=== PATIENT | female | born 1965 | race Caucasian/White ===

== ENCOUNTER 2018-05-14 15:14 | Outpatient (CLI) | payer MEDICARE, SELFPAY ==
[2018-05-14 15:47] LABS: Abs Immature Grans 0.01 k/cumm (0.0-0.09); Absolute Basophil Count 0.04 k/cumm (0.0-0.2); Absolute Eosinophil Count 0.24 k/cumm (0.0-0.7); Absolute Lymphocyte Count 2.23 k/cumm (1.2-3.4); Absolute Monocyte Count 0.47 k/cumm (0.11-0.7); Absolute Neutrophil Count 3.86 k/cumm (1.2-6.7); Basophils % 0.6; Eosinophils % 3.5; HGB 13.6 g/dL (12.0-15.5); Immature Grans % 0.1; Lymphocytes % 32.6; Mean Corpuscular Hemoglobin 29.4 pg (27.0-33.0); Mean Corpuscular Volume 86.6 fL (80-95); Mean Platelet Volume 11.5 fL (8.0-11.0); Monocytes % 6.9; Neutrophils % 56.3; Platelet Count 282 x1000/uL (130-400); RBC 4.62 m/cumm (4.00-5.20); RBC Distribution Width 13.6 % (11.7-14.6); White Blood Cell Count 6.85 k/cumm (4.4-10.8)
[2018-05-14 16:11] LABS: ALT 11 U/L (12-78); AST 13 U/L (15-37); Albumin 3.8 g/dL (3.4-5.0); Alkaline Phosphatase 63 U/L (46-116); Anion Gap 9.1 mmol/L (3-11); BUN 15 mg/dL (7-18); CO2 27.9 mmol/L (21.0-32.0); Chloride 105 mmol/L (98-107); Estimated GFR 42.85 (mL/min/1.73m2); Glucose 97 mg/dL (70-100); Potassium 4.1 mmol/L (3.5-5.1); Sodium 142 mmol/L (136-145); Total Protein 7.3 g/dL (6.4-8.2)
== END 2018-05-14 15:34 ==
PROVIDERS: PCP Family Medicine; Visit Provider Internal Medicine Medical Oncology
DX: C50.412 Malignant neoplasm of upper-outer quadrant of left female breast (principal); Z17.0 Estrogen receptor positive status [ER+]
CPT/HCPCS: 36415; 80053; 85025

== ENCOUNTER 2022-07-25 03:39 | Outpatient (CLI) | payer MEDICARE, SELFPAY ==
[2022-07-25 12:07] LABS: Abs Immature Grans 0.01 10^3/uL (0.0-0.06); Absolute Basophil Count 0.07 10^3/uL (0.0-0.2); Absolute Eosinophil Count 0.36 10^3/uL (0.0-0.7); Absolute Lymphocyte Count 1.71 10^3/uL (1.2-3.4); Absolute Monocyte Count 0.48 10^3/uL (0.1-0.8); Absolute Neutrophil Count 4.31 10^3/uL (1.2-6.7); Eosinophils % 5.2; HCT 40.1 % (36.0-46.0); Immature Grans % 0.1; Lymphocytes % 24.6; MCH 29.2 pg (27.0-33.0); MCHC 32.4 % (32.0-36.0); MCV 90 fL (80-95); MPV 11.5 fL (8.0-11.0); Monocytes % 6.9; Neutrophils % 62.2; Platelet Count 293 10^3/uL (130-400); RBC 4.45 10^6/uL (3.93-5.22); RDW 13.5 % (11.7-14.6); RDW-SD 44.6 fL; WBC 6.94 10^3/uL (4.4-10.8)
[2022-07-25 12:22] LABS: ALT 11 U/L (14-59); AST 15 U/L (15-37); Alkaline Phosphatase 58 U/L (46-116); Anion Gap 5.8 mmol/L (3-11); BUN 24 mg/dL (7-18); Bilirubin, Total 0.8 mg/dL (0.2-1.0); CO2 31.2 mmol/L (21.0-32.0); CREATININE 1.4 mg/dL (0.55-1.02); Calcium 9.5 mg/dL (8.5-10.1); Chloride 106 mmol/L (98-107); Estimated GFR 43.61 (mL/min/1.73m2); Glucose 100 mg/dL (74-106); Potassium 4.6 mmol/L (3.5-5.1); Sodium 143 mmol/L (136-145); Total Protein 7.1 g/dL (6.4-8.2)
== END 2022-07-25 03:40 | disposition home or self-care (01) ==
LOC: LBO 03:40
PROVIDERS: PCP Family Medicine; Visit Provider Internal Medicine
DX: C50.412 Malignant neoplasm of upper-outer quadrant of left female breast (principal)
CPT/HCPCS: 36415; 80053; 85025

== ENCOUNTER 2023-08-15 14:50 | Outpatient (CLI) | payer MEDICARE, SELFPAY ==
[2023-08-15 11:36] LABS: Abs Immature Grans 0.03 10^3/uL (0.0-0.06); Absolute Basophil Count 0.08 10^3/uL (0.0-0.2); Absolute Monocyte Count 0.56 10^3/uL (0.1-0.8); Absolute Neutrophil Count 4.01 10^3/uL (1.2-6.7); Basophils % 1.1; Eosinophils % 6.6; HCT 37.4 % (36.0-46.0); HGB 12.4 g/dL (11.2-15.7); Immature Grans % 0.4; Lymphocytes % 31.7; MCH 29.5 pg (27.0-33.0); MCHC 33.2 % (32.0-36.0); MCV 89 fL (80-95); MPV 11.1 fL (8.0-11.0); Monocytes % 7.4; Neutrophils % 52.8; Platelet Count 371 10^3/uL (130-400); RDW 14.1 % (11.7-14.6); RDW-SD 45.5 fL; WBC 7.58 10^3/uL (4.4-10.8)
[2023-08-15 11:49] LABS: ALT 13 U/L (14-59); AST 10 U/L (15-37); Albumin 3.6 g/dL (3.4-5.0); Alkaline Phosphatase 52 U/L (46-116); Anion Gap 7.3 mmol/L (3-11); BUN 19 mg/dL (7-18); Bilirubin, Total 0.6 mg/dL (0.2-1.0); CO2 28.7 mmol/L (21.0-32.0); CREATININE 1.3 mg/dL (0.55-1.02); Calcium 9.4 mg/dL (8.5-10.1); Chloride 105 mmol/L (98-107); Estimated GFR 47.37 (mL/min/1.73m2); Glucose 101 mg/dL (74-106); Potassium 4.4 mmol/L (3.5-5.1); Sodium 141 mmol/L (136-145); Total Protein 7.7 g/dL (6.4-8.2)
== END 2023-08-15 14:51 | disposition home or self-care (01) ==
LOC: LBO 14:50
PROVIDERS: PCP Family Medicine; Visit Provider Nurse Practitioner
DX: C50.412 Malignant neoplasm of upper-outer quadrant of left female breast (principal); Z17.0 Estrogen receptor positive status [ER+]
CPT/HCPCS: 36415; 80053; 85025

== ENCOUNTER 2024-01-22 02:33 | Outpatient (RCR) | payer MEDICARE, SELFPAY ==
[2024-01-08] MEDS: Normal Saline Flush 10 ML SYR IVP (09:15)
[2024-01-08 10:30] LABS: Abs Immature Grans 0.02 10^3/uL (0.0-0.06); Absolute Basophil Count 0.06 10^3/uL (0.0-0.2); Absolute Eosinophil Count 0.45 10^3/uL (0.0-0.7); Absolute Lymphocyte Count 1.53 10^3/uL (1.2-3.4); Absolute Monocyte Count 0.35 10^3/uL (0.1-0.8); Absolute Neutrophil Count 3.12 10^3/uL (1.2-6.7); Basophils % 1.1 %; Eosinophils % 8.1 %; HCT 37.2 % (36.0-46.0); HGB 12.4 g/dL (11.2-15.7); Immature Grans % 0.4 %; Lymphocytes % 27.7 %; MCH 29.2 pg (27.0-33.0); MCHC 33.3 % (32.0-36.0); MCV 88 fL (80-95); MPV 12.2 fL (8.0-11.0); Monocytes % 6.3 %; Neutrophils % 56.4 %; Platelet Count 282 10^3/uL (130-400); RBC 4.24 10^6/uL (3.93-5.22); RDW 14.6 % (11.7-14.6); RDW-SD 46.5 fL; WBC 5.53 10^3/uL (4.4-10.8)
[2024-01-08 10:58] LABS: ALT 16 U/L (14-59); AST 14 U/L (15-37); Albumin 3.9 g/dL (3.4-5.0); Alkaline Phosphatase 51 U/L (46-116); Anion Gap 7.7 mmol/L (3-11); BUN 20 mg/dL (7-18); Bilirubin, Total 0.8 mg/dL (0.2-1.0); CO2 29.3 mmol/L (21.0-32.0); CREATININE 1.4 mg/dL (0.55-1.02); Calcium 9.5 mg/dL (8.5-10.1); Chloride 106 mmol/L (98-107); Estimated GFR 43.34 (mL/min/1.73m2); Glucose 99 mg/dL (74-106); Potassium 4.2 mmol/L (3.5-5.1); Sodium 143 mmol/L (136-145); TSH 4.83 uIU/Ml (0.36-3.74); Total Protein 7.3 g/dL (6.4-8.2)
[2024-01-15] MEDS: Normal Saline Flush 10 ML SYR IVP (10:42)
[2024-01-15 11:01] LABS: Abs Immature Grans 0.05 10^3/uL (0.0-0.06); Absolute Basophil Count 0.05 10^3/uL (0.0-0.2); Absolute Eosinophil Count 0.36 10^3/uL (0.0-0.7); Absolute Lymphocyte Count 1.61 10^3/uL (1.2-3.4); Absolute Monocyte Count 0.22 10^3/uL (0.1-0.8); Absolute Neutrophil Count 2.74 10^3/uL (1.2-6.7); Eosinophils % 7.2 %; HCT 36.8 % (36.0-46.0); HGB 12.3 g/dL (11.2-15.7); MCH 29.6 pg (27.0-33.0); MCHC 33.4 % (32.0-36.0); MCV 89 fL (80-95); MPV 11.4 fL (8.0-11.0); Monocytes % 4.4 %; Neutrophils % 54.4 %; Platelet Count 335 10^3/uL (130-400); RBC 4.15 10^6/uL (3.93-5.22); RDW-SD 45.2 fL; WBC 5.03 10^3/uL (4.4-10.8)
[2024-01-15 11:32] LABS: ALT 17 U/L (14-59); AST 14 U/L (15-37); Alkaline Phosphatase 51 U/L (46-116); Anion Gap 6.9 mmol/L (3-11); BUN 20 mg/dL (7-18); CO2 30.1 mmol/L (21.0-32.0); CREATININE 1.4 mg/dL (0.55-1.02); Calcium 9.3 mg/dL (8.5-10.1); Chloride 105 mmol/L (98-107); Estimated GFR 43.34 (mL/min/1.73m2); FREE T4 < 0.10 ng/dL (0.76-1.46); Glucose 92 mg/dL (74-106); Potassium 4.2 mmol/L (3.5-5.1); Sodium 142 mmol/L (136-145); TSH 8.46 uIU/Ml (0.36-3.74); Total Protein 7.2 g/dL (6.4-8.2)
[2024-01-15 12:57] LABS: Albumin < 0.6 g/dL (3.4-5.0)
[2024-01-22] MEDS: Normal Saline Flush 10 ML SYR IVP (10:39)
[2024-01-22 11:20] LABS: Abs Immature Grans 0.02 10^3/uL (0.0-0.06); Absolute Basophil Count 0.06 10^3/uL (0.0-0.2); Absolute Eosinophil Count 0.18 10^3/uL (0.0-0.7); Absolute Lymphocyte Count 1.23 10^3/uL (1.2-3.4); Absolute Monocyte Count 0.18 10^3/uL (0.1-0.8); Basophils % 1.7 %; HCT 36.7 % (36.0-46.0); Immature Grans % 0.6 %; Lymphocytes % 34.5 %; MCH 29.6 pg (27.0-33.0); MCHC 32.7 % (32.0-36.0); MCV 90 fL (80-95); Neutrophils % 53.2 %; Platelet Count 330 10^3/uL (130-400); RBC 4.06 10^6/uL (3.93-5.22); RDW 14.1 % (11.7-14.6); RDW-SD 45.3 fL; WBC 3.57 10^3/uL (4.4-10.8)
[2024-01-22 11:43] LABS: ALT 19 U/L (14-59); AST 18 U/L (15-37); Alkaline Phosphatase 51 U/L (46-116); Anion Gap 7.9 mmol/L (3-11); BUN 17 mg/dL (7-18); Bilirubin, Total 0.89 mg/dL (0.2-1.0); CO2 30.1 mmol/L (21.0-32.0); CREATININE 1.4 mg/dL (0.55-1.02); Calcium 9.6 mg/dL (8.5-10.1); Chloride 104 mmol/L (98-107); Estimated GFR 43.34 (mL/min/1.73m2); FREE T4 1.03 ng/dL (0.76-1.46); Glucose 100 mg/dL (74-106); Potassium 4.2 mmol/L (3.5-5.1); Sodium 142 mmol/L (136-145); TSH 10.29 uIU/Ml (0.36-3.74); Total Protein 7.1 g/dL (6.4-8.2)
== END 2024-01-27 23:59 | disposition home or self-care (01) ==
LOC: INF 02:33
PROVIDERS: PCP Family Medicine; Visit Provider Internal Medicine Hematology & Oncology
DX: C50.311 Malignant neoplasm of lower-inner quadrant of right female breast (principal); E03.9 Hypothyroidism, unspecified; Z45.2 Encounter for adjustment and management of vascular access device
CPT/HCPCS: 36591; 80053; 84439; 84443; 85025

== ENCOUNTER 2024-02-26 03:07 | Outpatient (RCR) | payer MEDICARE, SELFPAY ==
[2024-01-29] MEDS: Normal Saline Flush 10 ML SYR IVP (09:32)
[2024-01-29 09:40] LABS: Abs Immature Grans 0.05 10^3/uL (0.0-0.06); Absolute Basophil Count 0.08 10^3/uL (0.0-0.2); Absolute Eosinophil Count 0.09 10^3/uL (0.0-0.7); Absolute Lymphocyte Count 1.24 10^3/uL (1.2-3.4); Absolute Neutrophil Count 1.92 10^3/uL (1.2-6.7); Basophils % 2.2 %; Eosinophils % 2.5 %; HGB 11.1 g/dL (11.2-15.7); Immature Grans % 1.4 %; Lymphocytes % 34.6 %; MCH 29.8 pg (27.0-33.0); MCHC 32.6 % (32.0-36.0); MCV 91 fL (80-95); MPV 10.8 fL (8.0-11.0); Monocytes % 5.6 %; Neutrophils % 53.7 %; Platelet Count 364 10^3/uL (130-400); RBC 3.72 10^6/uL (3.93-5.22); RDW 14.9 % (11.7-14.6); RDW-SD 46.5 fL; WBC 3.58 10^3/uL (4.4-10.8)
[2024-01-29 10:11] LABS: ALT 15 U/L (14-59); AST 14 U/L (15-37); Albumin 3.7 g/dL (3.4-5.0); Alkaline Phosphatase 50 U/L (46-116); Anion Gap 8.4 mmol/L (3-11); BUN 17 mg/dL (7-18); Bilirubin, Total 0.55 mg/dL (0.2-1.0); CO2 28.6 mmol/L (21.0-32.0); CREATININE 1.4 mg/dL (0.55-1.02); Calcium 9.4 mg/dL (8.5-10.1); Chloride 104 mmol/L (98-107); Estimated GFR 43.34 (mL/min/1.73m2); FREE T4 0.91 ng/dL (0.76-1.46); Glucose 101 mg/dL (74-106); Potassium 4.1 mmol/L (3.5-5.1); Sodium 141 mmol/L (136-145); TSH 11.16 uIU/Ml (0.36-3.74)
[2024-02-05] MEDS: Normal Saline Flush 10 ML SYR IVP (10:48)
[2024-02-05 10:57] LABS: Abs Immature Grans 0.03 10^3/uL (0.0-0.06); Absolute Basophil Count 0.04 10^3/uL (0.0-0.2); Absolute Eosinophil Count 0.12 10^3/uL (0.0-0.7); Absolute Lymphocyte Count 1.23 10^3/uL (1.2-3.4); Absolute Monocyte Count 0.24 10^3/uL (0.1-0.8); Absolute Neutrophil Count 2.14 10^3/uL (1.2-6.7); Basophils % 1.1 %; Eosinophils % 3.2 %; HCT 33.8 % (36.0-46.0); HGB 11.1 g/dL (11.2-15.7); Immature Grans % 0.8 %; Lymphocytes % 32.4 %; MCH 29.8 pg (27.0-33.0); MCHC 32.8 % (32.0-36.0); MCV 91 fL (80-95); MPV 10.3 fL (8.0-11.0); Monocytes % 6.3 %; Neutrophils % 56.2 %; Platelet Count 294 10^3/uL (130-400); RBC 3.72 10^6/uL (3.93-5.22); RDW 15.2 % (11.7-14.6)
[2024-02-05 11:23] LABS: ALT 17 U/L (14-59); AST 15 U/L (15-37); Albumin 3.7 g/dL (3.4-5.0); Alkaline Phosphatase 49 U/L (46-116); Anion Gap 7.6 mmol/L (3-11); BUN 13 mg/dL (7-18); Bilirubin, Total 0.98 mg/dL (0.2-1.0); CO2 27.4 mmol/L (21.0-32.0); CREATININE 1.3 mg/dL (0.55-1.02); Calcium 8.9 mg/dL (8.5-10.1); Chloride 104 mmol/L (98-107); Estimated GFR 47.37 (mL/min/1.73m2); Glucose 85 mg/dL (74-106); Sodium 139 mmol/L (136-145); TSH 11.08 uIU/Ml (0.36-3.74); Total Protein 6.9 g/dL (6.4-8.2)
[2024-02-12 10:28] LABS: Abs Immature Grans 0.03 10^3/uL (0.0-0.06); Absolute Basophil Count 0.06 10^3/uL (0.0-0.2); Absolute Eosinophil Count 0.11 10^3/uL (0.0-0.7); Absolute Monocyte Count 0.22 10^3/uL (0.1-0.8); Absolute Neutrophil Count 1.78 10^3/uL (1.2-6.7); Basophils % 1.8 %; Eosinophils % 3.3 %; HCT 32.6 % (36.0-46.0); Immature Grans % 0.9 %; Lymphocytes % 33.3 %; MCH 30.6 pg (27.0-33.0); MCHC 33.7 % (32.0-36.0); MCV 91 fL (80-95); MPV 10.2 fL (8.0-11.0); Monocytes % 6.7 %; Platelet Count 249 10^3/uL (130-400); RBC 3.59 10^6/uL (3.93-5.22); RDW 15.6 % (11.7-14.6); RDW-SD 50.4 fL
[2024-02-12] MEDS: Normal Saline Flush 10 ML SYR IVP (10:35)
[2024-02-12 10:52] LABS: ALT 18 U/L (14-59); AST 14 U/L (15-37); Albumin 3.8 g/dL (3.4-5.0); Alkaline Phosphatase 45 U/L (46-116); BUN 15 mg/dL (7-18); Bilirubin, Total 1.09 mg/dL (0.2-1.0); CREATININE 1.4 mg/dL (0.55-1.02); Calcium 9.3 mg/dL (8.5-10.1); Chloride 105 mmol/L (98-107); Estimated GFR 43.34 (mL/min/1.73m2); FREE T4 1.08 ng/dL (0.76-1.46); Glucose 106 mg/dL (74-106); Potassium 4.1 mmol/L (3.5-5.1); Sodium 141 mmol/L (136-145); TSH 10.38 uIU/Ml (0.36-3.74); Total Protein 7.1 g/dL (6.4-8.2)
[2024-02-26] MEDS: Normal Saline Flush 10 ML SYR IVP (08:30)
[2024-02-26 09:00] LABS: Abs Immature Grans 0.02 10^3/uL (0.0-0.06); Absolute Basophil Count 0.04 10^3/uL (0.0-0.2); Absolute Eosinophil Count 0.09 10^3/uL (0.0-0.7); Absolute Lymphocyte Count 1.45 10^3/uL (1.2-3.4); Absolute Monocyte Count 0.45 10^3/uL (0.1-0.8); Absolute Neutrophil Count 1.99 10^3/uL (1.2-6.7); Eosinophils % 2.2 %; HCT 33.1 % (36.0-46.0); HGB 11.2 g/dL (11.2-15.7); Immature Grans % 0.5 %; Lymphocytes % 35.9 %; MCH 30.9 pg (27.0-33.0); MCHC 33.8 % (32.0-36.0); MCV 91 fL (80-95); MPV 10.4 fL (8.0-11.0); Monocytes % 11.1 %; Neutrophils % 49.3 %; Platelet Count 251 10^3/uL (130-400); RBC 3.63 10^6/uL (3.93-5.22); RDW 17.2 % (11.7-14.6); RDW-SD 55.9 fL; WBC 4.04 10^3/uL (4.4-10.8)
[2024-02-26 09:28] LABS: ALT 16 U/L (14-59); AST 16 U/L (15-37); Albumin 3.6 g/dL (3.4-5.0); Alkaline Phosphatase 49 U/L (46-116); Anion Gap 11.2 mmol/L (3-11); BUN 13 mg/dL (7-18); Bilirubin, Total 1.08 mg/dL (0.2-1.0); CO2 27.8 mmol/L (21.0-32.0); CREATININE 1.8 mg/dL (0.55-1.02); Calcium 9.3 mg/dL (8.5-10.1); Chloride 107 mmol/L (98-107); Estimated GFR 32.06 (mL/min/1.73m2); FREE T4 1.16 ng/dL (0.76-1.46); Glucose 101 mg/dL (74-106); Potassium 3.9 mmol/L (3.5-5.1); Sodium 146 mmol/L (136-145); TSH 11.98 uIU/Ml (0.36-3.74); Total Protein 7.1 g/dL (6.4-8.2)
== END 2024-02-27 23:59 | disposition home or self-care (01) ==
LOC: INF 03:07
PROVIDERS: PCP Family Medicine; Visit Provider Internal Medicine Hematology & Oncology
DX: C50.311 Malignant neoplasm of lower-inner quadrant of right female breast (principal); Z17.1 Estrogen receptor negative status [ER-]; E03.9 Hypothyroidism, unspecified; Z45.2 Encounter for adjustment and management of vascular access device
CPT/HCPCS: 36591; 80053; 84439; 84443; 85025

== ENCOUNTER 2024-03-25 02:32 | Outpatient (RCR) | payer MEDICARE, SELFPAY ==
[2024-03-04 09:02] LABS: Abs Immature Grans 0.03 10^3/uL (0.0-0.06); Absolute Basophil Count 0.03 10^3/uL (0.0-0.2); Absolute Eosinophil Count 0.13 10^3/uL (0.0-0.7); Absolute Monocyte Count 0.22 10^3/uL (0.1-0.8); Basophils % 0.7 %; Eosinophils % 3.1 %; HCT 31.7 % (36.0-46.0); HGB 10.7 g/dL (11.2-15.7); Immature Grans % 0.7 %; Lymphocytes % 23.8 %; MCH 31.3 pg (27.0-33.0); MCHC 33.8 % (32.0-36.0); MCV 93 fL (80-95); MPV 10.3 fL (8.0-11.0); Monocytes % 5.2 %; Neutrophils % 66.5 %; Platelet Count 287 10^3/uL (130-400); RBC 3.42 10^6/uL (3.93-5.22); RDW 16.4 % (11.7-14.6); RDW-SD 55.2 fL; WBC 4.21 10^3/uL (4.4-10.8)
[2024-03-04 09:29] LABS: ALT 18 U/L (14-59); AST 12 U/L (15-37); Albumin 3.6 g/dL (3.4-5.0); Alkaline Phosphatase 51 U/L (46-116); Anion Gap 6.4 mmol/L (3-11); BUN 19 mg/dL (7-18); Bilirubin, Total 0.69 mg/dL (0.2-1.0); CO2 29.6 mmol/L (21.0-32.0); CREATININE 1.5 mg/dL (0.55-1.02); Calcium 9.5 mg/dL (8.5-10.1); Chloride 105 mmol/L (98-107); Estimated GFR 39.89 (mL/min/1.73m2); FREE T4 0.99 ng/dL (0.76-1.46); Glucose 103 mg/dL (74-106); Sodium 141 mmol/L (136-145); TSH 10.73 uIU/Ml (0.36-3.74); Total Protein 7.1 g/dL (6.4-8.2)
[2024-03-04] MEDS: Normal Saline Flush 10 ML SYR IVP (09:43)
[2024-03-11] MEDS: Normal Saline Flush 10 ML SYR IVP (07:46)
[2024-03-11 08:38] LABS: Abs Immature Grans 0.01 10^3/uL (0.0-0.06); Absolute Basophil Count 0.04 10^3/uL (0.0-0.2); Absolute Eosinophil Count 0.13 10^3/uL (0.0-0.7); Absolute Lymphocyte Count 1.17 10^3/uL (1.2-3.4); Absolute Monocyte Count 0.18 10^3/uL (0.1-0.8); Basophils % 1.5 %; Eosinophils % 4.8 %; HCT 31.2 % (36.0-46.0); HGB 10.8 g/dL (11.2-15.7); Immature Grans % 0.4 %; Lymphocytes % 42.9 %; MCH 31.8 pg (27.0-33.0); MCHC 34.6 % (32.0-36.0); MCV 92 fL (80-95); MPV 10.6 fL (8.0-11.0); Monocytes % 6.6 %; Neutrophils % 43.8 %; Platelet Count 310 10^3/uL (130-400); RDW 16.5 % (11.7-14.6); RDW-SD 54.3 fL; WBC 2.73 10^3/uL (4.4-10.8)
[2024-03-11 09:01] LABS: ALT 16 U/L (14-59); AST 17 U/L (15-37); Albumin 3.6 g/dL (3.4-5.0); Alkaline Phosphatase 46 U/L (46-116); Anion Gap 10.3 mmol/L (3-11); BUN 17 mg/dL (7-18); CO2 27.7 mmol/L (21.0-32.0); CREATININE 1.6 mg/dL (0.55-1.02); Calcium 9.5 mg/dL (8.5-10.1); Chloride 104 mmol/L (98-107); Estimated GFR 36.92 (mL/min/1.73m2); Glucose 96 mg/dL (74-106); Potassium 3.7 mmol/L (3.5-5.1); Sodium 142 mmol/L (136-145); Total Protein 7.1 g/dL (6.4-8.2)
[2024-03-18 09:02] LABS: Abs Immature Grans 0.02 10^3/uL (0.0-0.06); Absolute Basophil Count 0.03 10^3/uL (0.0-0.2); Absolute Eosinophil Count 0.07 10^3/uL (0.0-0.7); Absolute Lymphocyte Count 1.27 10^3/uL (1.2-3.4); Absolute Monocyte Count 0.19 10^3/uL (0.1-0.8); Absolute Neutrophil Count 0.88 10^3/uL (1.2-6.7); Basophils % 1.2 %; Eosinophils % 2.8 %; HCT 31.3 % (36.0-46.0); HGB 10.4 g/dL (11.2-15.7); Immature Grans % 0.8 %; Lymphocytes % 51.6 %; MCH 31.9 pg (27.0-33.0); MCHC 33.2 % (32.0-36.0); MCV 96 fL (80-95); MPV 10.4 fL (8.0-11.0); Monocytes % 7.7 %; Neutrophils % 35.9 %; Platelet Count 348 10^3/uL (130-400); RBC 3.26 10^6/uL (3.93-5.22); RDW 17.2 % (11.7-14.6); RDW-SD 58.7 fL; WBC 2.46 10^3/uL (4.4-10.8)
[2024-03-18] MEDS: Normal Saline Flush 10 ML SYR IVP (09:05)
[2024-03-18 09:21] LABS: Diff Comment Diff Reviewed; RBC Morphology Normal
[2024-03-18 09:28] LABS: ALT 10 U/L (14-59); AST 6 U/L (15-37); Albumin 3.5 g/dL (3.4-5.0); Alkaline Phosphatase 51 U/L (46-116); Anion Gap 7.9 mmol/L (3-11); BUN 12 mg/dL (7-18); Bilirubin, Total 0.56 mg/dL (0.2-1.0); CO2 26.1 mmol/L (21.0-32.0); CREATININE 1.5 mg/dL (0.55-1.02); Calcium 9.1 mg/dL (8.5-10.1); Chloride 105 mmol/L (98-107); Estimated GFR 39.89 (mL/min/1.73m2); Glucose 96 mg/dL (74-106); Potassium 4.2 mmol/L (3.5-5.1); Sodium 139 mmol/L (136-145); TSH 9.11 uIU/Ml (0.36-3.74); Total Protein 6.7 g/dL (6.4-8.2)
[2024-03-25] MEDS: Normal Saline Flush 10 ML SYR IVP (08:48)
[2024-03-25 09:21] LABS: Abs Immature Grans 0.05 10^3/uL (0.0-0.06); Absolute Basophil Count 0.05 10^3/uL (0.0-0.2); Absolute Eosinophil Count 0.07 10^3/uL (0.0-0.7); Absolute Lymphocyte Count 1.25 10^3/uL (1.2-3.4); Absolute Monocyte Count 0.53 10^3/uL (0.1-0.8); Basophils % 1.3 %; Eosinophils % 1.8 %; HCT 32.6 % (36.0-46.0); HGB 10.8 g/dL (11.2-15.7); Immature Grans % 1.3 %; Lymphocytes % 31.3 %; MCHC 33.1 % (32.0-36.0); MCV 96 fL (80-95); MPV 10.4 fL (8.0-11.0); Monocytes % 13.3 %; Platelet Count 308 10^3/uL (130-400); RBC 3.38 10^6/uL (3.93-5.22); RDW 17.5 % (11.7-14.6); RDW-SD 62.4 fL; WBC 3.99 10^3/uL (4.4-10.8)
[2024-03-25 09:22] LABS: Absolute Neutrophil Count 2.03 10^3/uL (1.2-6.7)
[2024-03-25 09:35] LABS: ALT 17 U/L (14-59); AST 14 U/L (15-37); Albumin 3.5 g/dL (3.4-5.0); Alkaline Phosphatase 58 U/L (46-116); Anion Gap 8.6 mmol/L (3-11); BUN 13 mg/dL (7-18); Bilirubin, Total 1.01 mg/dL (0.2-1.0); CO2 27.4 mmol/L (21.0-32.0); CREATININE 1.6 mg/dL (0.55-1.02); Calcium 9.2 mg/dL (8.5-10.1); Chloride 105 mmol/L (98-107); Estimated GFR 36.92 (mL/min/1.73m2); Glucose 93 mg/dL (74-106); Potassium 3.9 mmol/L (3.5-5.1); Sodium 141 mmol/L (136-145); Total Protein 7.1 g/dL (6.4-8.2)
== END 2024-03-29 23:59 | disposition home or self-care (01) ==
LOC: INF 02:32
PROVIDERS: PCP Family Medicine; Visit Provider Internal Medicine Hematology & Oncology
DX: C50.311 Malignant neoplasm of lower-inner quadrant of right female breast (principal); Z17.1 Estrogen receptor negative status [ER-]
CPT/HCPCS: 36591; 80053; 84439; 84443; 85025

== ENCOUNTER 2024-04-15 01:29 | Outpatient (RCR) | payer MEDICARE, SELFPAY ==
[2024-04-01 09:21] LABS: Abs Immature Grans 0.07 10^3/uL (0.0-0.06); Absolute Basophil Count 0.06 10^3/uL (0.0-0.2); Absolute Eosinophil Count 0.12 10^3/uL (0.0-0.7); Absolute Lymphocyte Count 1.23 10^3/uL (1.2-3.4); Absolute Monocyte Count 0.29 10^3/uL (0.1-0.8); Absolute Neutrophil Count 3.14 10^3/uL (1.2-6.7); Basophils % 1.2 %; Eosinophils % 2.4 %; HCT 31.4 % (36.0-46.0); HGB 10.5 g/dL (11.2-15.7); Immature Grans % 1.4 %; Lymphocytes % 25.1 %; MCH 32.1 pg (27.0-33.0); MCHC 33.4 % (32.0-36.0); MCV 96 fL (80-95); MPV 10.6 fL (8.0-11.0); Monocytes % 5.9 %; Platelet Count 311 10^3/uL (130-400); RBC 3.27 10^6/uL (3.93-5.22); RDW 15.9 % (11.7-14.6); RDW-SD 56.7 fL; WBC 4.91 10^3/uL (4.4-10.8)
[2024-04-01] MEDS: Normal Saline Flush 10 ML SYR IVP (09:42)
[2024-04-01 09:45] LABS: ALT 17 U/L (14-59); AST 17 U/L (15-37); Albumin 3.5 g/dL (3.4-5.0); Alkaline Phosphatase 50 U/L (46-116); Anion Gap 6.2 mmol/L (3-11); BUN 18 mg/dL (7-18); Bilirubin, Total 0.92 mg/dL (0.2-1.0); CO2 28.8 mmol/L (21.0-32.0); CREATININE 1.7 mg/dL (0.55-1.02); Calcium 9.9 mg/dL (8.5-10.1); Chloride 106 mmol/L (98-107); Estimated GFR 34.33 (mL/min/1.73m2); FREE T4 1.34 ng/dL (0.76-1.46); Glucose 106 mg/dL (74-106); Sodium 141 mmol/L (136-145); TSH 4.99 uIU/Ml (0.36-3.74); Total Protein 7.1 g/dL (6.4-8.2)
[2024-04-08] MEDS: Normal Saline Flush 10 ML SYR IVP (08:52)
[2024-04-08 09:25] LABS: Abs Immature Grans 0.01 10^3/uL (0.0-0.06); Absolute Basophil Count 0.03 10^3/uL (0.0-0.2); Absolute Eosinophil Count 0.14 10^3/uL (0.0-0.7); Absolute Lymphocyte Count 0.98 10^3/uL (1.2-3.4); Absolute Monocyte Count 0.21 10^3/uL (0.1-0.8); Absolute Neutrophil Count 1.51 10^3/uL (1.2-6.7); Eosinophils % 4.9 %; HCT 29.6 % (36.0-46.0); Immature Grans % 0.3 %; MCH 32.7 pg (27.0-33.0); MCHC 33.8 % (32.0-36.0); MCV 97 fL (80-95); Monocytes % 7.3 %; Neutrophils % 52.5 %; Platelet Count 281 10^3/uL (130-400); RBC 3.06 10^6/uL (3.93-5.22); RDW 15.8 % (11.7-14.6); RDW-SD 54.9 fL; WBC 2.88 10^3/uL (4.4-10.8)
[2024-04-08 09:47] LABS: ALT 12 U/L (14-59); AST 14 U/L (15-37); Albumin 3.5 g/dL (3.4-5.0); Alkaline Phosphatase 48 U/L (46-116); Anion Gap 9.5 mmol/L (3-11); BUN 13 mg/dL (7-18); Bilirubin, Total 1.01 mg/dL (0.2-1.0); CO2 26.5 mmol/L (21.0-32.0); CREATININE 1.6 mg/dL (0.55-1.02); Calcium 9.8 mg/dL (8.5-10.1); Chloride 105 mmol/L (98-107); Estimated GFR 36.92 (mL/min/1.73m2); Glucose 93 mg/dL (74-106); Potassium 3.7 mmol/L (3.5-5.1); Sodium 141 mmol/L (136-145); Total Protein 7.1 g/dL (6.4-8.2)
[2024-04-15] MEDS: Normal Saline Flush 10 ML SYR IVP (08:52)
[2024-04-15 09:15] LABS: Abs Immature Grans 0.02 10^3/uL (0.0-0.06); Absolute Basophil Count 0.03 10^3/uL (0.0-0.2); Absolute Lymphocyte Count 1.14 10^3/uL (1.2-3.4); Absolute Monocyte Count 0.19 10^3/uL (0.1-0.8); Absolute Neutrophil Count 1.36 10^3/uL (1.2-6.7); Basophils % 1.1 %; Eosinophils % 3.5 %; HCT 30.1 % (36.0-46.0); Immature Grans % 0.7 %; Lymphocytes % 40.1 %; MCH 32.2 pg (27.0-33.0); MCHC 33.2 % (32.0-36.0); MCV 97 fL (80-95); MPV 10.2 fL (8.0-11.0); Monocytes % 6.7 %; Neutrophils % 47.9 %; Platelet Count 367 10^3/uL (130-400); RBC 3.11 10^6/uL (3.93-5.22); RDW 15.9 % (11.7-14.6); RDW-SD 55.3 fL; WBC 2.84 10^3/uL (4.4-10.8)
[2024-04-15 09:34] LABS: ALT 14 U/L (14-59); AST 15 U/L (15-37); Albumin 3.7 g/dL (3.4-5.0); Alkaline Phosphatase 54 U/L (46-116); Anion Gap 11.2 mmol/L (3-11); BUN 21 mg/dL (7-18); CO2 26.8 mmol/L (21.0-32.0); CREATININE 1.8 mg/dL (0.55-1.02); Calcium 9.6 mg/dL (8.5-10.1); Chloride 101 mmol/L (98-107); Estimated GFR 32.06 (mL/min/1.73m2); Glucose 114 mg/dL (74-106); Sodium 139 mmol/L (136-145); Total Protein 7.2 g/dL (6.4-8.2)
[2024-04-15 14:10] LABS: FREE T4 1.02 ng/dL (0.76-1.46); TSH 4.97 uIU/Ml (0.36-3.74)
== END 2024-04-28 23:59 | disposition home or self-care (01) ==
LOC: INF 01:29
PROVIDERS: PCP Family Medicine; Visit Provider Internal Medicine Hematology & Oncology
DX: C50.311 Malignant neoplasm of lower-inner quadrant of right female breast (principal); Z17.1 Estrogen receptor negative status [ER-]
CPT/HCPCS: 36591; 80053; 84439; 84443; 85025

== ENCOUNTER 2024-05-06 02:53 | Outpatient (RCR) | payer MEDICARE, SELFPAY ==
[2024-05-06] MEDS: Normal Saline Flush 10 ML SYR IVP (09:36)
[2024-05-06 09:52] LABS: Abs Immature Grans 0.02 10^3/uL (0.0-0.06); Absolute Basophil Count 0.04 10^3/uL (0.0-0.2); Absolute Eosinophil Count 0.22 10^3/uL (0.0-0.7); Absolute Lymphocyte Count 1.11 10^3/uL (1.2-3.4); Absolute Monocyte Count 0.35 10^3/uL (0.1-0.8); Eosinophils % 5.3 %; HCT 32.4 % (36.0-46.0); HGB 10.7 g/dL (11.2-15.7); Immature Grans % 0.5 %; Lymphocytes % 26.8 %; MCH 31.9 pg (27.0-33.0); MCV 97 fL (80-95); MPV 10.9 fL (8.0-11.0); Monocytes % 8.5 %; Neutrophils % 57.9 %; Platelet Count 302 10^3/uL (130-400); RBC 3.35 10^6/uL (3.93-5.22); RDW-SD 53.2 fL; WBC 4.14 10^3/uL (4.4-10.8)
[2024-05-06 10:24] LABS: ALT 11 U/L (14-59); AST 13 U/L (15-37); Albumin 3.5 g/dL (3.4-5.0); Alkaline Phosphatase 60 U/L (46-116); Anion Gap 10.1 mmol/L (3-11); BUN 15 mg/dL (7-18); Bilirubin, Total 0.69 mg/dL (0.2-1.0); CO2 26.9 mmol/L (21.0-32.0); CREATININE 1.4 mg/dL (0.55-1.02); Calcium 9.5 mg/dL (8.5-10.1); Chloride 107 mmol/L (98-107); Estimated GFR 43.34 (mL/min/1.73m2); Glucose 95 mg/dL (74-106); Potassium 3.7 mmol/L (3.5-5.1); Sodium 144 mmol/L (136-145); Total Protein 7.3 g/dL (6.4-8.2)
== END 2024-05-29 23:59 | disposition home or self-care (01) ==
LOC: INF 02:53
PROVIDERS: Nurse Practitioner Family; PCP Family Medicine; Visit Provider Internal Medicine Hematology & Oncology
DX: C50.311 Malignant neoplasm of lower-inner quadrant of right female breast (principal); Z17.1 Estrogen receptor negative status [ER-]; Z45.2 Encounter for adjustment and management of vascular access device
CPT/HCPCS: 36591; 80053; 85025

== ENCOUNTER 2024-06-27 14:30 | Outpatient (RCR) | payer MEDICARE, SELFPAY ==
[2024-06-05] MEDS: Normal Saline Flush 10 ML SYR IVP (13:09)
[2024-06-05 13:21] LABS: Abs Immature Grans 0.02 10^3/uL (0.0-0.06); Absolute Basophil Count 0.04 10^3/uL (0.0-0.2); Absolute Eosinophil Count 0.25 10^3/uL (0.0-0.7); Absolute Lymphocyte Count 1.87 10^3/uL (1.2-3.4); Absolute Neutrophil Count 2.14 10^3/uL (1.2-6.7); Basophils % 0.8 %; Eosinophils % 5.3 %; HGB 11.8 g/dL (11.2-15.7); Immature Grans % 0.4 %; Lymphocytes % 39.6 %; MCH 30.6 pg (27.0-33.0); MCHC 32.8 % (32.0-36.0); MCV 93 fL (80-95); Monocytes % 8.5 %; Neutrophils % 45.4 %; Platelet Count 287 10^3/uL (130-400); RBC 3.86 10^6/uL (3.93-5.22); RDW 13.3 % (11.7-14.6); RDW-SD 45.7 fL; WBC 4.72 10^3/uL (4.4-10.8)
[2024-06-05 13:45] LABS: ALT 9 U/L (14-59); AST 11 U/L (15-37); Albumin 3.3 g/dL (3.4-5.0); Alkaline Phosphatase 63 U/L (46-116); Anion Gap 7.9 mmol/L (3-11); BUN 16 mg/dL (7-18); Bilirubin, Total 0.78 mg/dL (0.2-1.0); CO2 29.1 mmol/L (21.0-32.0); CREATININE 1.4 mg/dL (0.55-1.02); Calcium 9.4 mg/dL (8.5-10.1); Chloride 107 mmol/L (98-107); Estimated GFR 43.34 (mL/min/1.73m2); FREE T4 1.39 ng/dL (0.76-1.46); Glucose 90 mg/dL (74-106); Potassium 3.9 mmol/L (3.5-5.1); Sodium 144 mmol/L (136-145); TSH 0.07 uIU/mL (0.36-3.74); Total Protein 7.3 g/dL (6.4-8.2)
[2024-06-27] MEDS: Normal Saline Flush 10 ML SYR IVP (15:36)
[2024-06-27 15:40] LABS: Abs Immature Grans 0.01 10^3/uL (0.0-0.06); Absolute Basophil Count 0.03 10^3/uL (0.0-0.2); Absolute Lymphocyte Count 2.39 10^3/uL (1.2-3.4); Absolute Neutrophil Count 2.98 10^3/uL (1.2-6.7); Basophils % 0.5 %; Eosinophils % 4.8 %; HCT 35.1 % (36.0-46.0); HGB 11.6 g/dL (11.2-15.7); Immature Grans % 0.2 %; Lymphocytes % 37.9 %; MCH 29.7 pg (27.0-33.0); MCV 90 fL (80-95); MPV 11.6 fL (8.0-11.0); Monocytes % 9.5 %; Neutrophils % 47.1 %; Platelet Count 310 10^3/uL (130-400); RBC 3.91 10^6/uL (3.93-5.22); RDW 12.9 % (11.7-14.6); WBC 6.31 10^3/uL (4.4-10.8)
[2024-06-27 16:06] LABS: ALT 8 U/L (14-59); AST 11 U/L (15-37); Albumin 3.4 g/dL (3.4-5.0); Alkaline Phosphatase 62 U/L (46-116); Anion Gap 6.6 mmol/L (3-11); BUN 21 mg/dL (7-18); Bilirubin, Total 0.53 mg/dL (0.2-1.0); CO2 27.4 mmol/L (21.0-32.0); CREATININE 1.4 mg/dL (0.55-1.02); Calcium 9.3 mg/dL (8.5-10.1); Chloride 109 mmol/L (98-107); Estimated GFR 43.34 (mL/min/1.73m2); FREE T4 1.39 ng/dL (0.76-1.46); Glucose 93 mg/dL (74-106); Potassium 3.9 mmol/L (3.5-5.1); Sodium 143 mmol/L (136-145); TSH 0.07 uIU/mL (0.36-3.74); Total Protein 7.2 g/dL (6.4-8.2)
== END 2024-06-28 23:59 | disposition home or self-care (01) ==
LOC: INF 14:30
PROVIDERS: Nurse Practitioner Family; PCP Family Medicine; Visit Provider Internal Medicine Hematology & Oncology
DX: C50.311 Malignant neoplasm of lower-inner quadrant of right female breast (principal); Z17.1 Estrogen receptor negative status [ER-]; E03.9 Hypothyroidism, unspecified; Z45.2 Encounter for adjustment and management of vascular access device
CPT/HCPCS: 36591; 80053; 84439; 84443; 85025

== ENCOUNTER 2024-07-17 02:25 | Outpatient (RCR) | payer MEDICARE, SELFPAY ==
[2024-07-17] MEDS: Normal Saline Flush 10 ML SYR IVP (13:28)
[2024-07-17 13:38] LABS: Abs Immature Grans 0.03 10^3/uL (0.0-0.06); Absolute Basophil Count 0.04 10^3/uL (0.0-0.2); Absolute Eosinophil Count 0.23 10^3/uL (0.0-0.7); Absolute Lymphocyte Count 1.68 10^3/uL (1.2-3.4); Absolute Monocyte Count 0.54 10^3/uL (0.1-0.8); Basophils % 0.6 %; Eosinophils % 3.4 %; HCT 30.5 % (36.0-46.0); HGB 9.9 g/dL (11.2-15.7); Immature Grans % 0.4 %; MCH 28.7 pg (27.0-33.0); MCHC 32.5 % (32.0-36.0); MCV 88 fL (80-95); MPV 10.4 fL (8.0-11.0); Neutrophils % 62.6 %; Platelet Count 373 10^3/uL (130-400); RBC 3.45 10^6/uL (3.93-5.22); RDW 13.1 % (11.7-14.6); RDW-SD 41.7 fL; WBC 6.72 10^3/uL (4.4-10.8)
[2024-07-17 14:10] LABS: ALT 6 U/L (14-59); AST 10 U/L (15-37); Albumin 3.1 g/dL (3.4-5.0); Alkaline Phosphatase 58 U/L (46-116); BUN 21 mg/dL (7-18); Bilirubin, Total 0.45 mg/dL (0.2-1.0); CREATININE 1.7 mg/dL (0.55-1.02); Calcium 9.5 mg/dL (8.5-10.1); Chloride 107 mmol/L (98-107); Estimated GFR 34.12 (mL/min/1.73m2); FREE T4 1.37 ng/dL (0.76-1.46); Glucose 99 mg/dL (74-106); Potassium 3.7 mmol/L (3.5-5.1); Sodium 143 mmol/L (136-145); TSH 0.05 uIU/mL (0.36-3.74)
== END 2024-07-29 23:59 | disposition home or self-care (01) ==
LOC: INF 02:25
PROVIDERS: PCP Family Medicine; Visit Provider Internal Medicine Hematology & Oncology
DX: C50.311 Malignant neoplasm of lower-inner quadrant of right female breast; Z17.1 Estrogen receptor negative status [ER-]; E03.9 Hypothyroidism, unspecified; Z45.2 Encounter for adjustment and management of vascular access device
CPT/HCPCS: 36591; 80053; 84439; 84443; 85025

== ENCOUNTER 2024-08-21 12:59 | Outpatient (REF) | payer MEDICARE, SELFPAY ==
[2024-08-21 16:19] LABS: Bilirubin Negative (Negative); Blood Negative (Negative); Clarity Clear (Clear); Glucose Negative (Negative); Ketones Negative (Negative); Leukocyte Esterase Moderate (Negative); Nitrite Negative (Negative); Specific Gravity <= 1.005 (1.005-1.025); Urobilinogen 0.2 mg/dL (Up to 0.2)
[2024-08-21 16:31] LABS: Bacteria Few HPF (Negative); C & S Indicated? Yes; Casts Negative LPF (Negative); Crystals Negative HPF (Negative); Epithelial Cells Rare HPF (Negative); Mucus Negative (Negative); RBC Negative HPF (0-2); WBC 20-50 HPF (0-5)
[2024-08-21 16:41] LABS: Creatinine,Urine 45.32 mg/dL; Sodium, Urine 27 mmol/L
== END 2024-08-21 13:00 | disposition home or self-care (01) ==
LOC: LBN 12:59
PROVIDERS: PCP Family Medicine; Visit Provider Internal Medicine Medical Oncology
DX: C50.311 Malignant neoplasm of lower-inner quadrant of right female breast (principal); Z17.1 Estrogen receptor negative status [ER-]
CPT/HCPCS: 87077; 81003; 81015; 82565; 84300; 87086; 87186

== ENCOUNTER 2024-08-28 03:25 | Outpatient (RCR) | payer MEDICARE, SELFPAY ==
[2024-08-08] MEDS: Normal Saline Flush 10 ML SYR IVP (09:57)
[2024-08-08 10:02] LABS: Abs Immature Grans 0.03 10^3/uL (0.0-0.06); Absolute Basophil Count 0.03 10^3/uL (0.0-0.2); Absolute Eosinophil Count 0.33 10^3/uL (0.0-0.7); Absolute Lymphocyte Count 1.38 10^3/uL (1.2-3.4); Absolute Monocyte Count 0.65 10^3/uL (0.1-0.8); Basophils % 0.5 %; Eosinophils % 5.1 %; HCT 30.6 % (36.0-46.0); HGB 9.9 g/dL (11.2-15.7); Immature Grans % 0.5 %; Lymphocytes % 21.5 %; MCHC 32.4 % (32.0-36.0); MCV 87 fL (80-95); Monocytes % 10.1 %; Neutrophils % 62.3 %; Platelet Count 329 10^3/uL (130-400); RBC 3.53 10^6/uL (3.93-5.22); RDW 13.5 % (11.7-14.6); RDW-SD 42.3 fL; WBC 6.42 10^3/uL (4.4-10.8)
[2024-08-08 10:32] LABS: ALT 9 U/L (14-59); AST 12 U/L (15-37); Albumin 2.9 g/dL (3.4-5.0); Alkaline Phosphatase 52 U/L (46-116); Anion Gap 7.5 mmol/L (3-11); BUN 25 mg/dL (7-18); CO2 29.5 mmol/L (21.0-32.0); CREATININE 2.2 mg/dL (0.55-1.02); Calcium 9.3 mg/dL (8.5-10.1); Chloride 107 mmol/L (98-107); Estimated GFR 25.04 (mL/min/1.73m2); FREE T4 1.33 ng/dL (0.76-1.46); Glucose 112 mg/dL (74-106); Potassium 3.5 mmol/L (3.5-5.1); Sodium 144 mmol/L (136-145); TSH 0.33 uIU/mL (0.36-3.74); Total Protein 6.6 g/dL (6.4-8.2)
[2024-08-21] MEDS: Normal Saline Flush 10 ML SYR IVP (08:38)
[2024-08-21 08:45] LABS: Abs Immature Grans 0.21 10^3/uL (0.0-0.06); Absolute Basophil Count 0.02 10^3/uL (0.0-0.2); Absolute Eosinophil Count 0.33 10^3/uL (0.0-0.7); Absolute Lymphocyte Count 1.66 10^3/uL (1.2-3.4); Absolute Monocyte Count 0.82 10^3/uL (0.1-0.8); Absolute Neutrophil Count 4.32 10^3/uL (1.2-6.7); Basophils % 0.3 %; Eosinophils % 4.5 %; HCT 28.9 % (36.0-46.0); HGB 9.6 g/dL (11.2-15.7); Immature Grans % 2.9 %; Lymphocytes % 22.6 %; MCH 27.9 pg (27.0-33.0); MCHC 33.2 % (32.0-36.0); MCV 84 fL (80-95); MPV 10.7 fL (8.0-11.0); Monocytes % 11.1 %; Neutrophils % 58.6 %; Platelet Count 365 10^3/uL (130-400); RBC 3.44 10^6/uL (3.93-5.22); RDW 14.8 % (11.7-14.6); RDW-SD 44.9 fL; WBC 7.36 10^3/uL (4.4-10.8)
[2024-08-21 09:15] LABS: ALT 15 U/L (14-59); AST 15 U/L (15-37); Albumin 2.9 g/dL (3.4-5.0); Alkaline Phosphatase 53 U/L (46-116); Anion Gap 14.1 mmol/L (3-11); BUN 21 mg/dL (7-18); Bilirubin, Total 0.49 mg/dL (0.2-1.0); CO2 19.9 mmol/L (21.0-32.0); CREATININE 2.5 mg/dL (0.55-1.02); Calcium 9.6 mg/dL (8.5-10.1); Chloride 111 mmol/L (98-107); Estimated GFR 21.48 (mL/min/1.73m2); FREE T4 0.99 ng/dL (0.76-1.46); Glucose 109 mg/dL (74-106); Potassium 3.2 mmol/L (3.5-5.1); Sodium 145 mmol/L (136-145); TSH 1.37 uIU/mL (0.36-3.74); Total Protein 6.6 g/dL (6.4-8.2)
[2024-08-28] MEDS: Normal Saline Flush 10 ML SYR IVP (08:25)
[2024-08-28 08:56] LABS: Abs Immature Grans 0.05 10^3/uL (0.0-0.06); Absolute Basophil Count 0.04 10^3/uL (0.0-0.2); Absolute Eosinophil Count 0.46 10^3/uL (0.0-0.7); Absolute Lymphocyte Count 1.99 10^3/uL (1.2-3.4); Absolute Monocyte Count 0.54 10^3/uL (0.1-0.8); Absolute Neutrophil Count 4.46 10^3/uL (1.2-6.7); Basophils % 0.5 %; Eosinophils % 6.1 %; HCT 29.6 % (36.0-46.0); HGB 9.6 g/dL (11.2-15.7); Immature Grans % 0.7 %; Lymphocytes % 26.4 %; MCH 27.9 pg (27.0-33.0); MCHC 32.4 % (32.0-36.0); MCV 86 fL (80-95); MPV 11.2 fL (8.0-11.0); Monocytes % 7.2 %; Neutrophils % 59.1 %; Platelet Count 326 10^3/uL (130-400); RBC 3.44 10^6/uL (3.93-5.22); RDW 15.4 % (11.7-14.6); RDW-SD 47.6 fL; WBC 7.54 10^3/uL (4.4-10.8)
[2024-08-28 09:14] LABS: ALT 12 U/L (14-59); AST 13 U/L (15-37); Albumin 2.9 g/dL (3.4-5.0); Alkaline Phosphatase 52 U/L (46-116); Anion Gap 6.8 mmol/L (3-11); BUN 23 mg/dL (7-18); Bilirubin, Total 0.59 mg/dL (0.2-1.0); CO2 24.2 mmol/L (21.0-32.0); CREATININE 2.1 mg/dL (0.55-1.02); Calcium 9.5 mg/dL (8.5-10.1); Chloride 110 mmol/L (98-107); Estimated GFR 26.48 (mL/min/1.73m2); Glucose 103 mg/dL (74-106); Potassium 3.7 mmol/L (3.5-5.1); Sodium 141 mmol/L (136-145); Total Protein 6.7 g/dL (6.4-8.2)
[2024-08-28 09:50] LABS: FREE T4 1.03 ng/dL (0.76-1.46)
== END 2024-08-29 23:59 | disposition home or self-care (01) ==
LOC: INF 03:25
PROVIDERS: PCP Family Medicine; Visit Provider Internal Medicine Hematology & Oncology
DX: C50.311 Malignant neoplasm of lower-inner quadrant of right female breast (principal); E03.9 Hypothyroidism, unspecified
CPT/HCPCS: 36591; 80053; 84439; 84443; 85025

== ENCOUNTER 2024-09-18 01:08 | Outpatient (RCR) | payer MEDICARE, SELFPAY ==
[2024-09-18 09:53] LABS: Abs Immature Grans 0.02 10^3/uL (0.0-0.06); Absolute Basophil Count 0.04 10^3/uL (0.0-0.2); Absolute Eosinophil Count 0.36 10^3/uL (0.0-0.7); Absolute Lymphocyte Count 3.08 10^3/uL (1.2-3.4); Absolute Monocyte Count 0.56 10^3/uL (0.1-0.8); Absolute Neutrophil Count 4.38 10^3/uL (1.2-6.7); Basophils % 0.5 %; Eosinophils % 4.3 %; HCT 30.2 % (36.0-46.0); HGB 9.6 g/dL (11.2-15.7); Immature Grans % 0.2 %; Lymphocytes % 36.5 %; MCH 27.8 pg (27.0-33.0); MCHC 31.8 % (32.0-36.0); MCV 88 fL (80-95); Monocytes % 6.6 %; Neutrophils % 51.9 %; Platelet Count 305 10^3/uL (130-400); RBC 3.45 10^6/uL (3.93-5.22); RDW 15.6 % (11.7-14.6); RDW-SD 49.8 fL; WBC 8.44 10^3/uL (4.4-10.8)
[2024-09-18] MEDS: Normal Saline Flush 5 ML SYR IVP (09:53)
[2024-09-18 10:13] LABS: ALT 12 U/L (14-59); AST 16 U/L (15-37); Albumin 3.2 g/dL (3.4-5.0); Alkaline Phosphatase 56 U/L (46-116); Anion Gap 8.3 mmol/L (3-11); BUN 19 mg/dL (7-18); Bilirubin, Total 0.59 mg/dL (0.2-1.0); CO2 24.7 mmol/L (21.0-32.0); CREATININE 2.1 mg/dL (0.55-1.02); Calcium 9.6 mg/dL (8.5-10.1); Chloride 109 mmol/L (98-107); Estimated GFR 26.48 (mL/min/1.73m2); Glucose 115 mg/dL (74-106); Potassium 3.8 mmol/L (3.5-5.1); Sodium 142 mmol/L (136-145)
[2024-09-18 14:07] LABS: FREE T4 1.19 ng/dL (0.76-1.46)
== END 2024-09-26 23:59 | disposition home or self-care (01) ==
LOC: INF 01:08
PROVIDERS: Nurse Practitioner Family; PCP Family Medicine; Visit Provider Internal Medicine Hematology & Oncology
DX: C50.311 Malignant neoplasm of lower-inner quadrant of right female breast (principal); Z17.1 Estrogen receptor negative status [ER-]; E03.9 Hypothyroidism, unspecified
CPT/HCPCS: 36591; 80053; 84439; 84443; 85025

== ENCOUNTER 2024-10-09 02:02 | Outpatient (RCR) | payer MEDICARE, SELFPAY ==
[2024-10-09] MEDS: Normal Saline Flush 10 ML SYR IVP (08:40)
[2024-10-09 08:54] LABS: Abs Immature Grans 0.01 10^3/uL (0.0-0.06); Absolute Basophil Count 0.04 10^3/uL (0.0-0.2); Absolute Eosinophil Count 0.38 10^3/uL (0.0-0.7); Absolute Lymphocyte Count 2.86 10^3/uL (1.2-3.4); Absolute Monocyte Count 0.58 10^3/uL (0.1-0.8); Absolute Neutrophil Count 3.16 10^3/uL (1.2-6.7); Basophils % 0.6 %; Eosinophils % 5.4 %; HCT 30.3 % (36.0-46.0); HGB 9.6 g/dL (11.2-15.7); Immature Grans % 0.1 %; Lymphocytes % 40.7 %; MCHC 31.7 % (32.0-36.0); MCV 88 fL (80-95); MPV 10.7 fL (8.0-11.0); Monocytes % 8.3 %; Neutrophils % 44.9 %; Platelet Count 312 10^3/uL (130-400); RBC 3.43 10^6/uL (3.93-5.22); RDW 15.5 % (11.7-14.6); WBC 7.03 10^3/uL (4.4-10.8)
[2024-10-09 09:26] LABS: ALT 9 U/L (14-59); AST 14 U/L (15-37); Albumin 3.1 g/dL (3.4-5.0); Alkaline Phosphatase 56 U/L (46-116); Anion Gap 10.7 mmol/L (3-11); BUN 18 mg/dL (7-18); Bilirubin, Total 0.6 mg/dL (0.2-1.0); CO2 26.3 mmol/L (21.0-32.0); CREATININE 1.9 mg/dL (0.55-1.02); Calcium 9.4 mg/dL (8.5-10.1); Chloride 107 mmol/L (98-107); Estimated GFR 29.86 (mL/min/1.73m2); Glucose 99 mg/dL (74-106); Potassium 3.7 mmol/L (3.5-5.1); Sodium 144 mmol/L (136-145); TSH 0.22 uIU/mL (0.36-3.74); Total Protein 6.9 g/dL (6.4-8.2)
== END 2024-10-27 23:59 | disposition home or self-care (01) ==
LOC: INF 02:02
PROVIDERS: Nurse Practitioner Family; PCP Family Medicine; Visit Provider Internal Medicine Hematology & Oncology
DX: C50.311 Malignant neoplasm of lower-inner quadrant of right female breast (principal); Z17.1 Estrogen receptor negative status [ER-]; E03.9 Hypothyroidism, unspecified
CPT/HCPCS: 36591; 80053; 84443; 85025

== ENCOUNTER 2024-11-21 00:33 | Outpatient (RCR) | payer MEDICARE, SELFPAY ==
[2024-10-31 13:40] LABS: Abs Immature Grans 0.02 10^3/uL (0.0-0.06); Absolute Basophil Count 0.06 10^3/uL (0.0-0.2); Absolute Eosinophil Count 0.35 10^3/uL (0.0-0.7); Absolute Lymphocyte Count 3.65 10^3/uL (1.2-3.4); Absolute Monocyte Count 0.51 10^3/uL (0.1-0.8); Absolute Neutrophil Count 3.46 10^3/uL (1.2-6.7); Basophils % 0.7 %; Eosinophils % 4.3 %; HCT 31.6 % (36.0-46.0); Immature Grans % 0.2 %; Lymphocytes % 45.3 %; MCHC 31.6 % (32.0-36.0); MCV 89 fL (80-95); MPV 11.3 fL (8.0-11.0); Monocytes % 6.3 %; Neutrophils % 43.2 %; Platelet Count 318 10^3/uL (130-400); RBC 3.57 10^6/uL (3.93-5.22); RDW 14.6 % (11.7-14.6); RDW-SD 47.9 fL; WBC 8.05 10^3/uL (4.4-10.8)
[2024-10-31] MEDS: Normal Saline Flush 10 ML SYR IVP (13:40)
[2024-10-31 13:53] LABS: ALT 9 U/L (14-59); AST 10 U/L (15-37); Albumin 3.3 g/dL (3.4-5.0); Alkaline Phosphatase 55 U/L (46-116); Anion Gap 10.6 mmol/L (3-11); BUN 22 mg/dL (7-18); Bilirubin, Total 0.6 mg/dL (0.2-1.0); CO2 21.4 mmol/L (21.0-32.0); CREATININE 2.2 mg/dL (0.55-1.02); Calcium 9.7 mg/dL (8.5-10.1); Chloride 110 mmol/L (98-107); Estimated GFR 25.04 (mL/min/1.73m2); Glucose 95 mg/dL (74-106); Sodium 142 mmol/L (136-145); Total Protein 7.2 g/dL (6.4-8.2)
[2024-11-21 08:43] LABS: Abs Immature Grans 0.02 10^3/uL (0.0-0.06); Absolute Basophil Count 0.04 10^3/uL (0.0-0.2); Absolute Eosinophil Count 0.28 10^3/uL (0.0-0.7); Absolute Lymphocyte Count 2.53 10^3/uL (1.2-3.4); Absolute Monocyte Count 0.47 10^3/uL (0.1-0.8); Absolute Neutrophil Count 4.25 10^3/uL (1.2-6.7); Basophils % 0.5 %; Eosinophils % 3.7 %; HCT 30.9 % (36.0-46.0); HGB 9.7 g/dL (11.2-15.7); Immature Grans % 0.3 %; Lymphocytes % 33.3 %; MCH 27.7 pg (27.0-33.0); MCHC 31.4 % (32.0-36.0); MCV 88 fL (80-95); MPV 11.1 fL (8.0-11.0); Monocytes % 6.2 %; Platelet Count 285 10^3/uL (130-400); RDW 14.3 % (11.7-14.6); RDW-SD 45.5 fL; WBC 7.59 10^3/uL (4.4-10.8)
[2024-11-21] MEDS: Normal Saline Flush 10 ML SYR IVP (08:46)
[2024-11-21 09:02] LABS: ALT 11 U/L (14-59); AST 13 U/L (15-37); Albumin 3.3 g/dL (3.4-5.0); Alkaline Phosphatase 48 U/L (46-116); Anion Gap 11.1 mmol/L (3-11); BUN 25 mg/dL (7-18); Bilirubin, Total 0.6 mg/dL (0.2-1.0); CO2 22.9 mmol/L (21.0-32.0); CREATININE 2.1 mg/dL (0.55-1.02); Calcium 9.7 mg/dL (8.5-10.1); Chloride 109 mmol/L (98-107); Estimated GFR 26.48 (mL/min/1.73m2); Glucose 110 mg/dL (74-106); Sodium 143 mmol/L (136-145)
[2024-11-21 09:12] LABS: FREE T4 1.59 ng/dL (0.76-1.46); TSH 0.01 uIU/mL (0.36-3.74)
== END 2024-11-26 23:59 | disposition home or self-care (01) ==
LOC: INF 00:33
PROVIDERS: Nurse Practitioner Family; PCP Family Medicine; Visit Provider Internal Medicine Hematology & Oncology
DX: C50.311 Malignant neoplasm of lower-inner quadrant of right female breast (principal); Z17.1 Estrogen receptor negative status [ER-]; E03.9 Hypothyroidism, unspecified; Z45.2 Encounter for adjustment and management of vascular access device
CPT/HCPCS: 36591; 80053; 84439; 84443; 85025